=== PATIENT | male | born 1995 | race Caucasian/White ===

== ENCOUNTER 2018-03-20 08:21 | Outpatient (CLI) | payer BC, SELFPAY ==
--- NOTE | 2018-03-20 08:53 | DI.RAD_ITS ---
SYMPTOM/DIAGNOSIS: BILAT HAND PAIN, M79.647 RIGHT HAND: The bones are normally mineralized. The joint spaces appear intact. The carpal alignment appears normal. IMPRESSION: Negative right hand.
--- NOTE | 2018-03-20 08:53 | DI.RAD_ITS ---
SYMPTOM/DIAGNOSIS: BILAT HAND PAIN, M79.643 LEFT HAND: The bones are normally mineralized. The joint spaces are well maintained. No bony erosions are seen. The carpal alignment appears normal. IMPRESSION: Negative left hand.
== END 2018-03-20 08:41 ==
PROVIDERS: PCP Family Medicine; Visit Provider Family Medicine
DX: M79.641 Pain in right hand (principal); M79.642 Pain in left hand
CPT/HCPCS: 73130

== ENCOUNTER 2018-04-27 12:30 | Outpatient (REF) | payer BC, SELFPAY ==
[2018-04-27 14:31] LABS: HCT 42.1 % (40.0-50.0); HGB 14.5 g/dL (13.5-17.5); Mean Corp. HGB Concentration 34.4 g/dL (32.0-36.0); Mean Corpuscular Hemoglobin 31.2 pg (27.0-33.0); Mean Corpuscular Volume 90.5 fL (80-95); Mean Platelet Volume 9.4 fL (8.0-11.0); Platelet Count 183 x1000/uL (130-400); RBC 4.65 m/cumm (4.50-6.00); RBC Distribution Width 12.2 % (11.8-14.1); White Blood Cell Count 3.89 k/cumm (4.4-10.8)
[2018-04-27 14:49] LABS: ALT 39 U/L (12-78); AST 22 U/L (15-37); Albumin 3.9 g/dL (3.4-5.0); Alkaline Phosphatase 60 U/L (46-116); Anion Gap 9.3 mmol/L (3-11); BUN 13 mg/dL (7-18); Bilirubin, Total 1.1 mg/dL (0.2-1.0); CO2 27.7 mmol/L (21.0-32.0); CREATININE 0.88 mg/dL (0.70-1.30); Calcium 8.7 mg/dL (8.5-10.1); Chloride 105 mmol/L (98-107); Glucose 74 mg/dL (70-100); Potassium 4.2 mmol/L (3.5-5.1); Sodium 142 mmol/L (136-145); TSH (W/Ref FT4) 2.53 uIU/mL (0.358-3.74); Total Protein 6.4 g/dL (6.4-8.2)
[2018-04-27 15:13] LABS: Ferritin 94 ng/mL (8-388)
[2018-04-28 11:50] LABS: IgA 129 mg/dL (85-499); Interpretation SEE COMMENTS; Tissue Transglutaminase IgA <1.2 U/mL (<4.0)
== END 2018-04-27 12:50 ==
LOC: NCHCN 12:30
PROVIDERS: PCP Family Medicine; Visit Provider Family Medicine
DX: R53.83 Other fatigue (principal)
CPT/HCPCS: 80053; 82784; 83516; 85027; 82728; 84443

== ENCOUNTER 2019-04-04 11:51 | Outpatient (REF) | payer BC, SELFPAY ==
[2019-04-06 09:38] LABS: HBs Antibody, Quant 5.6 mIU/mL; Hepatitis B Surface Ab Negative
[2019-04-06 10:25] LABS: Hepatitis B Surface Ag Negative (NEGAT)
[2019-04-06 10:29] LABS: HIV-1/2 Ag & Ab Screen Negative (NEGAT); Hepatitis C Ab w Rflx HCV PCR Negative (NEGAT)
[2019-04-06 11:59] LABS: Syphilis Serology (RPR) Negative (Negative)
[2019-04-06 12:24] LABS: Chlamydia Result Negative; GC Result Negative; Specimen Description URINE
== END 2019-04-04 12:11 ==
LOC: NCHCN 11:51
PROVIDERS: PCP Family Medicine; Visit Provider Family Medicine
DX: Z11.3 Encounter for screening for infections with a predominantly sexual mode of transmission (principal); Z11.4 Encounter for screening for human immunodeficiency virus [HIV]; Z11.59 Encounter for screening for other viral diseases
CPT/HCPCS: 86706; 86803; 87340; 87389; 87491; 87591; 86592

== ENCOUNTER → 2020-06-17 14:36 | Outpatient (CLI) | payer BC, SELFPAY ==
--- NOTE | 2020-06-17 13:15 | DI.RAD_ITS ---
EXAM: XR SCOLIOSIS T-L SPINE CLINICAL HISTORY: LUMBAR BACK PAIN,M54.5,NECK PAIN, M54.2, EVALUATE FOR SCOLIOSIS TECHNIQUE: COMPARISON: No exams were available for comparison FINDINGS: Radiographs of thoracic and lumbar spine were obtained. There is a minimal biconvex thoracolumbar sc oliosis. No underlying congenital vertebral defect seen. The intervertebral disc spaces are well pr eserved throughout. No bony lesion identified. Lungs are clear and heart is not enlarged. IMPRESSION: Minimal scoliosis, possibly positional. No other abnormality seen RADIATION DOSE DELIVERED: Total DLP Total DLP
== END ==
PROVIDERS: PCP Family Medicine; Visit Provider Family Medicine
DX: M41.85 Other forms of scoliosis, thoracolumbar region (principal); M54.5 Low back pain; M54.2 Cervicalgia
CPT/HCPCS: 72081

== ENCOUNTER 2020-08-12 22:36 | Outpatient (REF) | payer BC, SELFPAY ==
[2020-08-12 21:25] LABS: HCT 44.6 % (40.0-50.0); HGB 15.2 g/dL (13.5-17.5); MCH 30.5 pg (27.0-33.0); MCHC 34.1 % (32.0-36.0); MCV 89.6 fL (80-95); MPV 9.3 fL (8.0-11.0); Platelet Count 205 10^3/uL (130-400); RBC 4.98 10^6/uL (4.36-5.78); RDW 11.3 % (11.8-14.1); RDW-SD 36.5 fL
[2020-08-12 22:01] LABS: ALT 31 U/L (16-63); AST 15 U/L (15-37); Albumin 4.1 g/dL (3.4-5.0); Alkaline Phosphatase 35 U/L (46-116); Anion Gap 5.3 mmol/L (3-11); BUN 14 mg/dL (7-18); Bilirubin, Total 1.9 mg/dL (0.2-1.0); CO2 29.7 mmol/L (21.0-32.0); CREATININE 0.9 mg/dL (0.70-1.30); Calcium 8.3 mg/dL (8.5-10.1); Chloride 105 mmol/L (98-107); Glucose 94 mg/dL (74-106); Potassium 4.3 mmol/L (3.5-5.1); Sodium 140 mmol/L (136-145); TSH (W/Ref FT4) 2.07 uIU/mL (0.36-3.74); Total Protein 6.8 g/dL (6.4-8.2)
== END 2020-08-12 22:37 | disposition home or self-care (01) ==
LOC: NCHCN 22:36
PROVIDERS: PCP Family Medicine; Visit Provider Family Medicine
DX: F32.9 Major depressive disorder, single episode, unspecified (principal); K21.9 Gastro-esophageal reflux disease without esophagitis; G47.00 Insomnia, unspecified
CPT/HCPCS: 80053; 85027; 84443

== ENCOUNTER 2020-08-31 17:52 | Outpatient (REF) | payer BC, SELFPAY ==
[2020-09-02 13:21] LABS: Helicobacter pylori Ag, Feces Negative (Negative)
== END 2020-08-31 17:53 | disposition home or self-care (01) ==
LOC: NCHCN 17:52
PROVIDERS: PCP Family Medicine; Visit Provider Family Medicine
DX: K21.9 Gastro-esophageal reflux disease without esophagitis (principal)
CPT/HCPCS: 87338

== ENCOUNTER 2020-11-12 15:29 | Outpatient (REF) | payer BC, SELFPAY ==
[2020-11-12 22:11] LABS: Abs Immature Grans 0.01 10^3/uL (0.0-0.06); Absolute Basophil Count 0.04 10^3/uL (0.0-0.2); Absolute Eosinophil Count 0.14 10^3/uL (0.0-0.7); Absolute Lymphocyte Count 1.81 10^3/uL (1.2-3.4); Absolute Monocyte Count 0.53 10^3/uL (0.1-0.8); Absolute Neutrophil Count 2.35 10^3/uL (1.2-6.7); Basophils % 0.8; Eosinophils % 2.9; HCT 46.8 % (40.0-50.0); HGB 15.9 g/dL (13.5-17.5); Immature Grans % 0.2; Lymphocytes % 37.1; MCH 30.9 pg (27.0-33.0); MCV 90.9 fL (80-95); MPV 9.4 fL (8.0-11.0); Monocytes % 10.9; Neutrophils % 48.1; Nucleated RBC 0 %; Platelet Count 216 10^3/uL (130-400); RBC 5.15 10^6/uL (4.36-5.78); RDW 11.6 % (11.8-14.1); RDW-SD 38.8 fL; WBC 4.88 10^3/uL (4.4-10.8)
[2020-11-12 22:20] LABS: ALT 39 U/L (16-63); AST 20 U/L (15-37); Albumin 4.4 g/dL (3.4-5.0); Alkaline Phosphatase 35 U/L (46-116); Anion Gap 10.2 mmol/L (3-11); BUN 12 mg/dL (7-18); Bilirubin, Total 1.8 mg/dL (0.2-1.0); CO2 26.8 mmol/L (21.0-32.0); CREATININE 1.1 mg/dL (0.70-1.30); Calcium 9.5 mg/dL (8.5-10.1); Chloride 105 mmol/L (98-107); Glucose 86 mg/dL (74-106); Potassium 4.1 mmol/L (3.5-5.1); Sodium 142 mmol/L (136-145); Total Protein 7.1 g/dL (6.4-8.2)
[2020-11-14 15:53] LABS: Gastrin 19 pg/mL
== END 2020-11-12 15:30 | disposition home or self-care (01) ==
LOC: NCHCN 15:29
PROVIDERS: PCP Family Medicine; Visit Provider Family Medicine
DX: K92.2 Gastrointestinal hemorrhage, unspecified (principal); F32.9 Major depressive disorder, single episode, unspecified
CPT/HCPCS: 80053; 82941; 85025

== ENCOUNTER 2020-11-19 20:04 | Emergency (ER) | payer OTHER, SELFPAY ==
[2020-11-19 20:09] VITALS: BP 104/75; PULSE 75; RESP 18; TEMP 36.7; O2SAT 100
--- NOTE | 2020-11-19 20:10 | ED.GENADUL_ITS ---
Discharge Plan Disposition Patient Disposition: HOME Condition: Good Discharge Details Clinical Impression: Crushing injury of finger(s) Primary Care Provider: Zee Bunch ED Provider: Corina Chapin Discharge Instructions Instructions: Crush Injury (ED) Additional Instructions: Your imaging is reassuring here today. Not see any evidence to suggest fracture, ligamentous injury. However, crush injuries can cause significant discomfort and swelling. Please encourage rest, ice, elevation. Tylenol as needed for discomfort. Please take as directed on packaging. Please follow-up with primary care next week for reevaluation. Please avoid activities that cause increased discomfort. If you develop any new or worsening symptoms please seek care urgently once again. Stand Alone Forms: Work Release Referrals: Zee Bunch MD [Primary Care Provider] - Medical Decision Making Patient is a pleasant [id number] 25-year-old male presenting today with chief complaint of crush injury to the right hand. 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 Since that time, he is not wanting to range the finger secondary to pain. Denies any numbness or tingling. Denies other injury the time of the incident On exam, patient appears uncomfortable. He does have a small area of ecchymosis to the dorsal aspect of the PIP joint of the right middle finger. No other swelling, ecchymosis or deformity is noted. Sensation is intact. Capillary refill intact. Secondary to discomfort, unable to assess ligamentous exam. Will give p.o. Tylenol, obtain x-ray and reassess. Reviewed x-rays, no acute abnormality noted by myself. Awaiting radiology read. Two-point discrimination is intact. Patient is ligamentously intact on joint isolating resistant testing. This does cause increased discomfort however, particularly over the middle finger. Will nimesh tape the fingers to help with discomfort. Encouraged rest, ice, elevation. Tylenol as needed for discomfort. Patient reports he did recently overdose on ibuprofen and subsequently developed a GI bleed. Advise follow-up with primary care next week for reevaluation. Work note given based on what he does and the discomforts will likely cause the fingers. Return precautions were discussed. All his questions and concerns were addressed and he is in agreement this plan. FINDINGS: Bones/joints: Osseous mineralization is normal. There are no inflammatory osseous erosive changes. The joint spaces are maintained without degenerative changes. There is a 1 x 2 mm calcific density projecting dorsal to the carpal metacarpal joints on the lateral view, not present on prior study, which may represent at tiny avulsion fracture. No other fractures are identified. There are no subluxations. Soft tissues: Normal. IMPRESSION: New 1 x 2 mm calcific density projecting dorsal to the carpal metacarpal joints on the lateral view, could represent tiny avulsion fracture. No other fractures identified. I discussed this questioning with the patient but it does not correlate clinically. HPI General Mode of arrival: ambulatory . Date/Time Provider Initiated Documentation: 11/19/20 20:10 . Limitations to Documentation: no limitations . Information obtained by: patient and RN notes reviewed . History of Present Illness 25 year old M presents to the emergency department with the chief complaint of crush injury right hand, described as moderate, with intensity rated at 4. Quality is described as aching, and is localized to the right and upper extremity. Patient reports no radiation. Patient started experiencing this minute(s) and it has been constant. Immobilization im proves symptom(s), Movement worsens symptoms . Patient notes no other symptoms.. Patient did receive the following treatments prior to arrival, none Review of Systems Constitutional Constitutional: Reports as per HPI, Denies chills, Denies fever(s), Denies headache(s) and Denies weakness ENT Ears, Nose, Mouth, and Throat: Denies headache(s) Cardiovascular Cardiovascular: Reports as per HPI Respiratory Respiratory: Reports as per HPI and Denies cough Musculoskeletal Musculoskeletal: Reports as per HPI and Denies tingling Integumentary/Breasts Skin/Breast: Reports as per HPI, Denies rash and Denies wounds Neurologic Neurologic: Reports as per HPI, Denies headache(s), Denies tingling, Denies paresthesias and Denies weakness [facility] Social History Smoking/Tobacco Use Status: Never Smoking risk assessment performed?: Yes Alcohol Intake: never Drug use: Never Substance use type: does not use Do you feel safe at home: Yes Do you feel safe in your relationship?: Yes Exam Const General: cooperative, healthy appearing, uncomfortable, no acute distress, well developed and well groomed Nutritional Appearance: average body habitus and well nourished Orientation: alert and awake Resp Effort & Inspection: normal respiratory effort, able to speak in complete sentences and no respiratory distress Cardio Rate: regular rate Rhythm: regular rhythm Skin General skin exam: ecchymosis (small area of ecchymosis dorsal PIP joint right middle digit) Neuro General: patient alert and patient awake Cognition: normal cognition Speech: speech normal Gait: normal gait Motor: muscle tone normal throughout Sensory Exam: no sensory deficits noted Extrem Right upper extremity: normal capillary refill, no joint enlargement, wrist Details: normal to inspection, normal ROM and normal vascular exam; no tenderness and no swelling and hand Details: normal to inspection, normal capillary refill, neuromotor exam normal, neurosensory exam normal, tenderness Location: of the 2nd digit Location: at the middle phalanx, at the PIP joint and on the dorsal aspect; not at the MCP joint, not at the nailbed, not involving the fingernail, not at the DIP joint and not on the palmar aspect and of the 3rd digit Location: at the proximal phalanx, at the middle phalanx, at the PIP joint (area of maximal tenderness, small area of ecchymosis dorsal aspect) and on the dorsal aspect; not at the MCP joint, not at the distal phalanx and not involving the fingernail and ecchymosis; ROM of fingers abnormal (Does not want to range index or middle finger), no unusual warmth, no swelling, no abrasions, no lacerations and no crepitus Psych Appearance: grossly normal and well kempt Mental Status: mental status grossly normal Speech and Movement: speech and movement normal
[2020-11-19] MEDS: Acetaminophen 500 MG TAB 1000 MG PO (20:18)
--- NOTE | 2020-11-19 20:35 | DI.RAD_ITS ---
Exam(s) XR HAND RT COMPLETE EXAM: XR HAND RT COMPLETE CLINICAL HISTORY: crush injury index and middle finger. TECHNIQUE: 2D digital imaging was performed. COMPARISON: CR XR hand RT complete from 03/20/2018 FINDINGS: No fractures evident in the hand. No radiopaque foreign body. However, on the lateral view there is a 3 x 2 1.5 millimeter osteophytic density seen dorsal to the distal carpal row which was not presen t on the prior study and may represent avulsion injury. No other fractures identified. No erosions. IMPRESSION: Small calcific density seen dorsal to the distal carpal row, possibly representing avulsion injury. This finding was not evident in 2018. Correlation with site of tenderness is recommended. DATA REPOSITORY: RADIATION DOSE DELIVERED:
--- NOTE | 2020-11-19 20:54 | DI.VRAD_ITS ---
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 Views: 3 or more views. COMPARISON: CR XR hand RT complete 03/20/2018 8:39 AM FINDINGS: Bones/joints: Osseous mineralization is normal. There are no inflammatory osseous erosive changes. The joint spaces are maintained without degenerative changes. There is a 1 x 2 mm calcific density projecting dorsal to the carpal metacarpal joints on the lateral view, not present on prior study, which may represent at tiny avulsion fracture. No other fractures are identified. There are no subluxations. Soft tissues: Normal. IMPRESSION: New 1 x 2 mm calcific density projecting dorsal to the carpal metacarpal joints on the lateral view, could represent tiny avulsion fracture. No other fractures identified. Dictated and Authenticated by: Yehuda Roe MD. Ordering:HENRY Arriaga MD
[2020-11-19 21:05] VITALS: BP 104/75; PULSE 75; RESP 18; TEMP 36.7; O2SAT 100
== END 2020-11-19 21:05 | disposition home or self-care (01) ==
PROVIDERS: Emergency Provider Physician Assistant; PCP Family Medicine
DX: S67.190A Crushing injury of right index finger, initial encounter (principal); S67.192A Crushing injury of right middle finger, initial encounter; W31.89XA Contact with other specified machinery, initial encounter; Y99.0 Civilian activity done for income or pay
CPT/HCPCS: 99283; 73130; 99284